=== PATIENT | female | born 1990 | race Two or more races ===

== ENCOUNTER 2020-04-28 07:54 | Outpatient (REF) | payer OTHER, SELFPAY ==
[2020-04-28 08:26] LABS: COVID-19 Test Negative (Negative); IDNOW Serial# 55D5AD1C
== END 2020-04-28 07:55 | disposition home or self-care (01) ==
LOC: HO.EMPCOV 07:54
PROVIDERS: Visit Provider Internal Medicine
DX: Z20.828 Contact with and (suspected) exposure to other viral communicable diseases (principal)
CPT/HCPCS: 87635; C9803

== ENCOUNTER 2020-05-25 09:13 | Outpatient (REF) | payer OTHER, SELFPAY ==
[2020-05-25 09:48] LABS: COVID-19 Test Negative (Negative)
== END 2020-05-25 09:14 | disposition home or self-care (01) ==
LOC: HO.EMPCOV 09:13
PROVIDERS: Visit Provider Internal Medicine
DX: Z20.828 Contact with and (suspected) exposure to other viral communicable diseases (principal)
CPT/HCPCS: 87635; C9803

== ENCOUNTER 2020-07-28 07:50 | Outpatient (REF) | payer OTHER, SELFPAY ==
[2020-07-28 08:13] LABS: COVID-19 Test Negative (Negative)
== END 2020-07-28 07:51 | disposition home or self-care (01) ==
LOC: HO.EMPCOV 07:50
PROVIDERS: Visit Provider Internal Medicine
DX: Z20.822 Contact with and (suspected) exposure to COVID-19 (principal)
CPT/HCPCS: 36415; 87635; C9803

== ENCOUNTER 2020-08-03 10:45 | Outpatient (REF) | payer OTHER, SELFPAY ==
[2020-08-03 11:07] LABS: COVID-19 Test Negative (Negative); IDNOW Serial# 55D5AD1C
== END 2020-08-03 10:46 | disposition home or self-care (01) ==
LOC: HO.EMPCOV 10:45
PROVIDERS: Visit Provider Internal Medicine
DX: Z11.52 Encounter for screening for COVID-19 (principal)
CPT/HCPCS: 36415; 87635; C9803

== ENCOUNTER 2020-09-06 12:04 | Outpatient (REF) | payer OTHER, SELFPAY ==
[2020-09-06 12:26] LABS: COVID-19 Test Positive (Negative)
== END 2020-09-06 12:05 | disposition home or self-care (01) ==
LOC: HO.EMPCOV 12:04
PROVIDERS: Visit Provider Internal Medicine
DX: Z20.822 Contact with and (suspected) exposure to COVID-19 (principal)
CPT/HCPCS: 36415; 87635; C9803

== ENCOUNTER 2022-08-14 09:25 | Emergency (ER) | payer OTHER, SELFPAY ==
--- NOTE | ~2022-08-14 | CT_ITS ---
EXAMINATION: CT ABDOMEN AND PELVIS WITH CONTRAST CLINICAL INFORMATION: Abdominal pain. COMPARISON: Abdominal ultrasound earlier today. CT abdomen/pelvis 02/07/2019. TECHNIQUE: Multidetector volumetric images were obtained from the superior aspect of the liver through the pubic symphysis following administration 85 mL of Omnipaque 350 intravenous contrast. Sagittal and coronal reformatted images were obtained on the technologist's workstation. Oral contrast: No This CT examination was performed using dose optimization techniques as appropriate, variously including the following: *Automated exposure control *Adjustment of mA and/or kV according to patient size (this includes techniques or standardized protocols for targeted exams where dose is matched to indication/reason for exam; i.e. extremities or head) *Use of iterative reconstruction technique DLP: 433 mGy-cm FINDINGS: LUNG BASES: No focal consolidation or pleural effusion. LIVER, GALLBLADDER, AND BILIARY TREE: The liver is normal in size, shape, and attenuation. No focal hepatic lesion or biliary ductal dilatation is present. The gallbladder is unremarkable with no evidence of radiopaque gallstones, gallbladder wall thickening, or obvious pericholecystic inflammatory changes. PANCREAS: Unremarkable. SPLEEN: Unremarkable. ADRENAL GLANDS: Unremarkable. 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 No hydronephrosis or nephrolithiasis. No perinephric fat stranding. BLADDER: Unremarkable. GASTROINTESTINAL TRACT: Redemonstration of malrotation with the majority of the small bowel in the right hemiabdomen and the cecum displaced medially and superiorly. No evidence of volvulus. No abnormally dilated loops of the small bowel. Moderate to large colonic and rectal stool content suggesting constipation. No pericolonic inflammatory changes. No evidence of bowel obstruction. ABDOMINAL WALL: No significant hernia is appreciated. LYMPH NODES: No lymphadenopathy. VASCULAR: Normal caliber of the abdominal aorta. PELVIC VISCERA: There is suggestion of two endometrial cavities but with overall preserved uterine fundal contour favoring to represent a septate uterus less likely bicornuate uterus. The left ovary is slightly asymmetrically increased in size (3:66). There is some degree of cervical fullness with minimal fat stranding. 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 Thoracolumbar scoliosis. CT/CT abdomen pelvis w IV con IMPRESSION: 1. Moderate to large colonic and rectal stool content suggesting constipation. Redemonstration of malrotation of the bowel without evidence of volvulus. 2. The left ovary is slightly asymmetrically increased in size, possibly related with patient's rotation, recommend correlation with a pelvic ultrasound. 3. Query cervical prominence and engorgement with minimal fat stranding, recommend correlation with cervicitis.
--- NOTE | ~2022-08-14 | US_ITS ---
EXAMINATION: US ABDOMEN LIMITED only to gallbladder CLINICAL INFORMATION: Right upper quadrant pain. COMPARISON: None available. TECHNIQUE: Real-time imaging of the right upper quadrant abdominal viscera. FINDINGS: Imaging only of the gallbladder. Per the ordering physician There is no evidence of edema. No stone is seen on the imaging submitted. Common duct is measuring 4 mm. US/US abdomen limited IMPRESSION: No evidence for gallbladder stone or edema
[2022-08-14 10:52] VITALS: BP 141/90; PULSE 84; RESP 16; TEMP 36.1; O2SAT 100; BMI 27.4
--- NOTE | 2022-08-14 10:58 | ED_ITS ---
HPI - General Adult General Chief complaint: Abdominal Pain <Toy Maguire - Last Filed: 08/14/22 10:59> Stated complaint: R side pain <Toy Maguire - Last Filed: 08/14/22 10:59> Time Seen by Provider: 08/14/22 15:54 <Toy Maguire - Last Filed: 08/14/22 10:59> Source: patient <Ana Alfonso NP - Last Filed: 08/14/22 23:01> Mode of arrival: ambulatory <Ana Alfonso NP - Last Filed: 08/14/22 23:01> Limitations: no limitations <Ana Alfonso NP - Last Filed: 08/14/22 23:01> History of Present Illness HPI narrative: 32-year-old female presents with worsening right upper quadrant abdominal pain that radiates into her back. States that he gets worse after she eats. <Ana Alfonso NP - Last Filed: 08/14/22 23:01> Onset (ago): week(s) (3) <Ana Alfonso NP - Last Filed: 08/14/22 23:01> Location: abdomen <Ana Alfonso NP - Last Filed: 08/14/22 23:01> Radiation: back <Ana Alfonso NP - Last Filed: 08/14/22 23:01> Severity: moderate <Ana Alfonso NP - Last Filed: 08/14/22 23:01> Severity scale (1-10): 7 <Ana Alfonso NP - Last Filed: 08/14/22 23:01> Quality: stabbing and aching <Ana Alfonso NP - Last Filed: 08/14/22 23:01> Pain Consistency: intermittent and colicky <Ana Alfonso NP - Last Filed: 08/14/22 23:01> Exacerbating factors: eating and movement <Ana Alfonso NP - Last Filed: 08/14/22 23:01> Associated symptoms: denies other symptoms <Ana Alfonso NP - Last Filed: 08/14/22 23:01> Treatments prior to arrival: none <Ana Alfonso NP - Last Filed: 08/14/22 23:01> Related Data Home medications: Previous Rx's Medication Instructions Recorded doxycycline monohydrate 100 mg 100 mg PO BID 14 days #28 caps 08/14/22 capsule polyethylene glycol 3350 17 17 g PO DAILY #238 grams 08/14/22 gram/dose oral powder (Miralax) <Toy Maguire - Last Filed: 08/14/22 10:59> Allergies/adverse reactions: Allergies Allergy/AdvReac Type Severity Reaction Status Date / Time No Known Allergies Allergy Verified 08/14/22 10:49 [No Known Allergies*] <Toy Maguire - Last Filed: 08/14/22 10:59> Review of Systems Review of Systems: Constitutional: No Fever, No Chills Cardiovascular: No Chest Pain, No SOB Respiratory: No Cough, No Dyspnea Gastrointestinal: No Nausea, No Vomiting, No Diarrhea, positive abdominal Pain Genitourinary: No Dysuria, No Hematuria Musculoskeletal: No joint pain, No Myalgias, No Joint Swelling Skin: No Skin lacerations, No rash Neuro: No Weakness, No Numbness, No Paresthesias, No Dizziness, No Headache <Ana Alfonso NP - Last Filed: 08/14/22 23:01> Yes all other systems are reviewed and are negative <Ana Alfonso NP - Last Filed: 08/14/22 23:01> PMFSH Past Medical History Attestation statement: The following information was validated with the patient. <Ana Alfonso NP - Last Filed: 08/14/22 23:01> Source: old records reviewed <Ana Alfonso NP - Last Filed: 08/14/22 23:01> Medical History: Medical History Diabetes type I H. pylori infection Hypothyroid <Toy Maguire - Last Filed: 08/14/22 10:59> Social History Social History: Social History Alcohol intake: current Alcohol intake frequency: holidays/special occasions only Smoked in Last 30 Days: No Use of substances other than those prescribed or required for medical reasons: No Advance Directives: No Advance Directives Information Provided: No Patient : No <Toy Maguire - Last Filed: 08/14/22 10:59> Physical Exam ED Vital Signs: Vital Signs - 24 hr 08/14/22 10:52 08/14/22 13:09 08/14/22 16:03 Temperature 97 F 97.6 F 98.4 F Pulse Rate 84 88 83 Respiratory Rate 16 18 16 Blood Pressure 141/90 H 121/88 Pulse Oximetry 100 99 100 Oxygen Delivery Method Room Air Room Air Room Air 08/14/22 19:35 Temperature 97.7 F Pulse Rate 83 Respiratory Rate 18 Blood Pressure 134/81 Pulse Oximetry 100 Oxygen Delivery Method Room Air BMI result Body Mass Index 27.4 <Toy Maguire - Last Filed: 08/14/22 10:59> Vital Signs - 24 hr 08/14/22 10:52 08/14/22 13:09 08/14/22 16:03 Temperature 97 F 97.6 F 98.4 F Pulse Rate 84 88 83 Respiratory Rate 16 18 16 Blood Pressure 141/90 H 121/88 Pulse Oximetry 100 99 100 Oxygen Delivery Method Room Air Room Air Room Air 08/14/22 19:35 Temperature 97.7 F Pulse Rate 83 Respiratory Rate 18 Blood Pressure 134/81 Pulse Oximetry 100 Oxygen Delivery Method Room Air BMI result Body Mass Index 27.4 <Ana Alfonso NP - Last Filed: 08/14/22 23:01> Appearance: Alert. Oriented X3. Mild distress. Eyes: Pupils equal, round and reactive to light. Neck: Normal inspection. Neck supple. CVS: Normal heart rate and rhythm. Pulses normal. Respiratory: No respiratory distress. Breath sounds normal. Abdomen: Soft and positive Shook's. Nondistended. No rigidity. No rebound. Skin: Skin warm and dry. Normal skin color. Normal skin turgor. Extremities: No lower extremity edema. Gait balance and coordinated. Neuro: No motor deficit. No sensory deficit. Cranial nerves 2-12 intact. <Ana Alfonso NP - Last Filed: 08/14/22 23:01> Course Course Course Narrative: ESPERANZA- 32-year-old female presents for evaluation of right upper quadrant abdominal pain. She is currently being treated for H pylori. plan for labs, ultrasound gallbladder <Toy Maguire - Last Filed: 08/14/22 10:59> RME- 32-year-old female presents for evaluation of right upper quadrant abdominal pain. She is currently being treated for H pylori. plan for labs, ultrasound gallbladder 15:50 32-year-old female presents for evaluation for approximately 3 weeks of right upper quadrant abdominal pain that radiates to her back. She was evaluated by her primary care physician, diagnosed with H pylori and given medication regimen. She has been taking it daily as directed and has approximately 2 days left. The pain has not alleviated, and states that it feels worse after she eats. Provider in triage ordered a workup that is negative. At this time will order CT abdomen pelvis as patient does have a positive Shook sign, and tenderness to the epigastric area. 18:49 CT scan abdomen pelvis still pending. 19:40 CT scan indicates multiple incidental findings. Nothing acute. Shows redemonstration of malrotation with the majority of the small bowel in the right clinton abdomen and the cecum displaced medially and superiorly. No evidence of volvulus, no dilated loops, but does indicate large amounts of colonic and rectal stool consistent with constipation. There is a suggestion of 2 endometrial cavities but preserved uterine fundal contour favoring a septate uterus less likely bicornuate uterus. Cervicitis is on the differential list, patient is sexually active, does not have any abnormal discharge dysparuenia. Patient would like to be treated for sexually transmitted infections, will obtain urinalysis as well as giving ceftriaxone and doxycycline for 14 days to cover for syphilis. 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 Patient does understand that she must follow-up with her primary care physician for malrotation of the small bowel as this is not emergent finding but can cause problems in her future. Patient verbalized understanding of and agrees to plan of care discharge home. Verbalized understanding of signs and symptoms indicating need for emergent intervention. <Ana Alfonso [employer] - Last Filed: 08/14/22 23:01> Medications Administered Discontinued Medications Generic Name Dose Route Start Last Admin Trade Name Freq PRN Reason Stop Dose Admin Ceftriaxone Sodium 500 mg/ 0 mg 08/14/22 19:39 08/14/22 20:18 Lidocaine HCl 1 ml IM 08/14/22 19:40 1 kit ONCE ONE Administration Doxycycline Monohydrate 100 mg 08/14/22 19:39 08/14/22 20:17 Doxycycline Monohydrate 100 Mg Capsule PO 08/14/22 19:40 100 mg ONCE ONE Administration Iohexol 85 ml 08/14/22 16:59 08/14/22 17:00 Iohexol 350 Mg/Ml 100 Ml Infus..Btl IV 08/14/22 17:00 85 ml ONCE ONE Administration <Toy Maguire - Last Filed: 08/14/22 10:59> Medications Administered Discontinued Medications Generic Name Dose Route Start Last Admin Trade Name Shai PRN Reason Stop Dose Admin Ceftriaxone Sodium 500 mg/ 0 mg 08/14/22 19:39 08/14/22 20:18 Lidocaine HCl 1 ml IM 08/14/22 19:40 1 kit ONCE ONE Administration Doxycycline Monohydrate 100 mg 08/14/22 19:39 08/14/22 20:17 Doxycycline Monohydrate 100 Mg Capsule PO 08/14/22 19:40 100 mg ONCE ONE Administration Iohexol 85 ml 08/14/22 16:59 08/14/22 17:00 Iohexol 350 Mg/Ml 100 Ml Infus..Btl IV 08/14/22 17:00 85 ml ONCE ONE Administration <Ana Alfonso NP - Last Filed: 08/14/22 23:01> Medical Decision Making Differential Diagnosis Differential Diagnoses: The differential diagnosis associated with the presentation includes <Ana Alfonso NP - Last Filed: 08/14/22 23:01> Cholecystitis, kidney stone, pyelonephritis, appendicitis <Ana Alfonso NP - Last Filed: 08/14/22 23:01> Lab Data MDM Lab Attestation statement: I reviewed the patient's lab results. <Ana Alfonso NP - Last Filed: 08/14/22 23:01> Result Diagrams: 08/14/22 12:51 08/14/22 12:51 <Toy Maguire - Last Filed: 08/14/22 10:59> Labs: Lab Results 08/14/22 08/14/22 Range/Units 12:51 12:51 WBC 7.7 (4.8-10.8) X10*3/uL RBC 4.20 (4.20-5.50) X10*6/uL Hgb 11.8 L (12.0-16.0) g/dl Hct 35.4 L (37.0-47.0) % MCV 84.3 (80.0-98.0) fL MCH 28.1 (27.0-33.0) pg MCHC 33.3 (31.0-35.0) g/dl RDW 12.7 (11.0-16.0) % Plt Count 323 (160-400) X10*3/uL MPV 10.8 (9.4-12.3) fL Immature Gran % (Auto) 0.4 (0.0-0.4) % Neut % (Auto) 54.2 (45-73) % Lymph % (Auto) 39.0 (20-40) % Posey % (Auto) 4.7 (2-11) % Eos % (Auto) 1.2 (0-4) % Baso % (Auto) 0.5 (0-2) % Lymph # (Auto) 3.0 (1.2-4.9) X10*3/uL Posey # (Auto) 0.4 (0.1-1.2) X10*3/uL Eos # (Auto) 0.1 (0.0-0.4) X10*3/uL Baso # (Auto) 0.0 (0.0-0.2) X10*3/uL Abs Immat Gran (auto) 0.03 (0.00-0.03) X10*3/uL Absolute Neuts (auto) 4.2 (2.0-8.3) x10*3/uL Absolute Nucleated RBC 0.000 (0.0-0.012) X10*3/uL Nucleated RBC % (auto) 0.0 (0.0-0.2) /100WBC Sodium 141 (135-145) mmol/L Potassium 4.6 (3.3-5.1) mmol/L Chloride 105 (96-108) mmol/L Carbon Dioxide 28 (22-29) mmol/L Anion Gap 13 (12-20) BUN 10 (9-16) mg/dL Creatinine 0.68 (0.5-1.4) mg/dL Estim Creat Clear Calc 96.6 Estimated GFR > 60 Random Glucose 173 H (60-115) mg/dL Calcium 9.0 (8.4-10.2) mg/dL Total Bilirubin 0.4 (0.0-1.0) mg/dL AST 21 (5-31) U/L ALT 12 (0-31) U/L Alkaline Phosphatase 97 (39-117) U/L Total Protein 7.2 (6.5-8.0) g/dL Albumin 4.1 (3.5-5.0) g/dL Lipase 19 (8-78) U/L Beta HCG, Quant < 2 mIU/mL <Toy Maguire - Last Filed: 08/14/22 10:59> Lab Results 08/14/22 08/14/22 Range/Units 12:51 12:51 WBC 7.7 (4.8-10.8) X10*3/uL RBC 4.20 (4.20-5.50) X10*6/uL Hgb 11.8 L (12.0-16.0) g/dl Hct 35.4 L (37.0-47.0) % MCV 84.3 (80.0-98.0) fL MCH 28.1 (27.0-33.0) pg MCHC 33.3 (31.0-35.0) g/dl RDW 12.7 (11.0-16.0) % Plt Count 323 (160-400) X10*3/uL MPV 10.8 (9.4-12.3) fL Immature Gran % (Auto) 0.4 (0.0-0.4) % Neut % (Auto) 54.2 (45-73) % Lymph % (Auto) 39.0 (20-40) % Posey % (Auto) 4.7 (2-11) % Eos % (Auto) 1.2 (0-4) % Baso % (Auto) 0.5 (0-2) % Lymph # (Auto) 3.0 (1.2-4.9) X10*3/uL Posey # (Auto) 0.4 (0.1-1.2) X10*3/uL Eos # (Auto) 0.1 (0.0-0.4) X10*3/uL Baso # (Auto) 0.0 (0.0-0.2) X10*3/uL Abs Immat Gran (auto) 0.03 (0.00-0.03) X10*3/uL Absolute Neuts (auto) 4.2 (2.0-8.3) x10*3/uL Absolute Nucleated RBC 0.000 (0.0-0.012) X10*3/uL Nucleated RBC % (auto) 0.0 (0.0-0.2) /100WBC Sodium 141 (135-145) mmol/L Potassium 4.6 (3.3-5.1) mmol/L Chloride 105 (96-108) mmol/L Carbon Dioxide 28 (22-29) mmol/L Anion Gap 13 (12-20) BUN 10 (9-16) mg/dL Creatinine 0.68 (0.5-1.4) mg/dL Estim Creat Clear Calc 96.6 Estimated GFR > 60 Random Glucose 173 H (60-115) mg/dL Calcium 9.0 (8.4-10.2) mg/dL Total Bilirubin 0.4 (0.0-1.0) mg/dL AST 21 (5-31) U/L ALT 12 (0-31) U/L Alkaline Phosphatase 97 (39-117) U/L Total Protein 7.2 (6.5-8.0) g/dL Albumin 4.1 (3.5-5.0) g/dL Lipase 19 (8-78) U/L Beta HCG, Quant < 2 mIU/mL <Ana Alfonso NP - Last Filed: 08/14/22 23:01> Independent Interpretation I performed an independent interpretation of an: Ultrasound and CT Scan <Ana Alfonso NP - Last Filed: 08/14/22 23:01> Radiology Impression Discussion of test interpretation with radiology: I have reviewed the radiologist's reading. <Ana Alfonso NP - Last Filed: 08/14/22 23:01> Radiologist Impression: EXAMINATION: US ABDOMEN LIMITED only to gallbladder CLINICAL INFORMATION: Right upper quadrant pain. COMPARISON: None available. TECHNIQUE: Real-time imaging of the right upper quadrant abdominal viscera. FINDINGS: Imaging only of the gallbladder. Per the ordering physician There is no evidence of edema. No stone is seen on the imaging submitted. Common duct is measuring 4 mm. US/US abdomen limited IMPRESSION: No evidence for gallbladder stone or edema FINDINGS: LUNG BASES: No focal consolidation or pleural effusion.? LIVER, GALLBLADDER, AND BILIARY TREE: The liver is normal in size, shape, and attenuation. No focal hepatic lesion or biliary ductal dilatation is present. The gallbladder is unremarkable with no evidence of radiopaque gallstones, gallbladder wall thickening, or obvious pericholecystic inflammatory changes.? PANCREAS: Unremarkable.? SPLEEN: Unremarkable.? ADRENAL GLANDS: Unremarkable.? 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 No hydronephrosis or nephrolithiasis. No perinephric fat stranding.? BLADDER: Unremarkable.? GASTROINTESTINAL TRACT: Redemonstration of malrotation with the majority of the small bowel in the right hemiabdomen and the cecum displaced medially and superiorly. No evidence of volvulus. No abnormally dilated loops of the small bowel. Moderate to large colonic and rectal stool content suggesting constipation. No pericolonic inflammatory changes. No evidence of bowel obstruction.? ABDOMINAL WALL: No significant hernia is appreciated.? LYMPH NODES: No lymphadenopathy. VASCULAR: Normal caliber of the abdominal aorta. PELVIC VISCERA: There is suggestion of two endometrial cavities but with overall preserved uterine fundal contour favoring to represent a septate uterus less likely bicornuate uterus. The left ovary is slightly asymmetrically increased in size (3:66). There is some degree of cervical fullness with minimal fat stranding.? 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 Thoracolumbar scoliosis.? CT/CT abdomen pelvis w IV con IMPRESSION: 1.? Moderate to large colonic and rectal stool content suggesting constipation. Redemonstration of malrotation of the bowel without evidence of volvulus. 2.? The left ovary is slightly asymmetrically increased in size, possibly related with patient's rotation, recommend correlation with a pelvic ultrasound. 3.? Query cervical prominence and engorgement with minimal fat stranding, recommend correlation with cervicitis. <Ana Alfonso NP - Last Filed: 08/14/22 23:01> External Record Review No prior records at this facility for this patient <Ana Alfonso NP - Last Filed: 08/14/22 23:01> Discharge Plan Discharge Clinical Impression: Abdominal pain, Constipation, Cervicitis <Toy Maguire - Last Filed: 08/14/22 10:59> Patient Disposition: Home, Self-Care <Toy OhLucernemines - Last Filed: 08/14/22 10:59> Instructions: Cervicitis (ED), Constipation (ED), Abdominal Pain (ED) <Toy Maguire - Last Filed: 08/14/22 10:59> Additional Instructions: You were evaluated for abdominal pain. CT scan of abdomen pelvis indicates moderate to large colonic and rectal stool suggesting constipation and malrotation of the bowel without evidence of obstruction or volvulus. Please take MiraLax on a daily basis to help reduce constipation. Follow-up with primary care physician on outpatient basis to monitor some malrotation of the bowel. Your physician may refer you to a general surgeon for a non emergent consult. For cervicitis, your urinalysis is pending. We will call you with your results. We treated you with his ceftriaxone IM injection, and doxycycline 100 mg twice a day for the next 14 days. Please finish the entire course of this medication. You must follow-up with your telephone maintenance mechanic for an asymmetrical left ovary, and a cervix that looks like a septate uterus. A septate uterus is in normal shaped uterus with a wall of tissue creating 2 cavities. This is a benign finding however you must have an OBGYN follow-up with pelvic ultrasound as an outpatient. Thank you for choosing this emergency department for evaluation. Please follow-up with primary care physician as needed. Return to the emergency department for any new, concerning, or worsening symptoms. <Toy OhManuel - Last Filed: 08/14/22 10:59> Prescriptions: New doxycycline monohydrate 100 mg capsule 100 mg PO BID 14 Days Qty: 28 0RF polyethylene glycol 3350 [Miralax] 17 gram/dose powder 17 g PO DAILY Qty: 238 0RF <Toy Maguire - Last Filed: 08/14/22 10:59> Referrals: Jerry Pope MD [Physician] - 2 weeks (Abnormal uterus on CT, outpatient pelvic ultrasound) <Toy Maguire - Last Filed: 08/14/22 10:59> Stand Alone Forms: Work/School Release <Toy Maguire - Last Filed: 08/14/22 10:59> Interventions: ED Discharge Assessment Last Done: 08/14/22 20:32 <Toy Maguire - Last Filed: 08/14/22 10:59> Discharge Date/Time: 08/14/22 20:32 <Toy Maguire - Last Filed: 08/14/22 10:59>
[2022-08-14 12:58] LABS: MANUAL DIFF FLAG NO
[2022-08-14 13:00] LABS: Basophils Percent Auto 0.5 % (0-2); Eosinophils Absolute Auto 0.1 X10*3/uL (0.0-0.4); Eosinophils Percent Auto 1.2 % (0-4); Hematocrit 35.4 % (37.0-47.0); Hemoglobin 11.8 g/dl (12.0-16.0); Imm Gran Abs Auto 0.03 X10*3/uL (0.00-0.03); Imm Gran Pct Auto 0.4 % (0.0-0.4); Mean Corpuscular HGB Conc 33.3 g/dl (31.0-35.0); Mean Corpuscular Hemoglobin 28.1 pg (27.0-33.0); Mean Corpuscular Volume 84.3 fL (80.0-98.0); Mean Platelet Volume 10.8 fL (9.4-12.3); Monocytes Absolute Auto 0.4 X10*3/uL (0.1-1.2); Monocytes Percent Auto 4.7 % (2-11); Neutrophils Absolute Auto 4.2 x10*3/uL (2.0-8.3); Neutrophils Percent Auto 54.2 % (45-73); Platelet Count 323 X10*3/uL (160-400); Red Cell Distribution Width 12.7 % (11.0-16.0); White Blood Count 7.7 X10*3/uL (4.8-10.8)
[2022-08-14 13:09] VITALS: PULSE 88; RESP 18; TEMP 36.4; O2SAT 99
[2022-08-14 13:24] LABS: Alanine Aminotransferase 12 U/L (0-31); Albumin Level 4.1 g/dL (3.5-5.0); Alkaline Phosphatase 97 U/L (39-117); Anion Gap 13 (12-20); Aspartate Amino Transferase 21 U/L (5-31); Bilirubin Total 0.4 mg/dL (0.0-1.0); Blood Urea Nitrogen 10 mg/dL (9-16); Carbon Dioxide 28 mmol/L (22-29); Chloride 105 mmol/L (96-108); Creatinine Clr Calc Pharmacy 96.6; Estimated Glomerular Filt Rate > 60; Glucose Random 173 mg/dL (60-115); Lipase 19 U/L (8-78); Potassium 4.6 mmol/L (3.3-5.1); Sodium 141 mmol/L (135-145); Total Protein 7.2 g/dL (6.5-8.0)
[2022-08-14 13:28] LABS: HCG Quantitative < 2 mIU/mL
[2022-08-14 16:03] VITALS: BP 121/88; PULSE 83; RESP 16; TEMP 36.9; O2SAT 100
--- NOTE | 2022-08-14 16:20 | PC.NURSE ---
patient a&ox3, pt previously had labs drawn in triage, pt to have IV inserted for CT scan, c/o Rt abd pain, vitals stable, call alcantara within reach, will continue to monitor.
--- NOTE | 2022-08-14 16:30 | PC.NURSE ---
pt AOx3, reporting right flank pain. pt almost finished with abx for h. pylori which has helped her abdomen pain but she continues to have right flank pain.
--- NOTE | 2022-08-14 16:55 | PC.NURSE ---
pt to ct scan
[2022-08-14] MEDS: iohexoL 350 MG/ML 100 ML INFUS..BTL 85 ML IV (17:00)
[2022-08-14 19:35] VITALS: BP 134/81; PULSE 83; RESP 18; TEMP 36.5; O2SAT 100
--- NOTE | 2022-08-14 19:48 | PC.NURSE ---
urine sample CT NG sent to lab.
--- NOTE | 2022-08-14 20:00 | PC.NURSE ---
calling pharmacy about ceftriaxone order as it wont let us take the lido out of the pharmacy. pharmacy to bring us a vial
[2022-08-14] MEDS: Doxycycline Monohydrate 100 MG CAPSULE PO (20:17)
[2022-08-14] MEDS: cefTRIAXone sodium 500 MG, Lidocaine HCl 1 % MPF 1 ML IM (20:18)
[2022-08-15 01:04] LABS: CT PCR NOT DETECTED (Not Detect.); NG PCR NOT DETECTED (Not Detect.)
== END 2022-08-14 20:32 | disposition home or self-care (01) ==
PROVIDERS: Nurse Practitioner Family; Physician Assistant; Emergency Provider Internal Medicine
DX: R10.9 Unspecified abdominal pain (principal); N72 Inflammatory disease of cervix uteri; K59.00 Constipation, unspecified; B96.81 Helicobacter pylori [H. pylori] as the cause of diseases classified elsewhere; Z20.2 Contact with and (suspected) exposure to infections with a predominantly sexual mode of transmission; E10.9 Type 1 diabetes mellitus without complications; Z79.899 Other long term (current) drug therapy
CPT/HCPCS: 0353U; 36415; 74177; 76705; 80053; 83690; 84702; 85025; 96372; 99284; J0696; Q9967